=== PATIENT | female | born 1980 | race Caucasian/White ===

== ENCOUNTER 2016-06-21 05:07 | Inpatient (IN) ==
[2016-06-19 07:16] LABS: MANUAL DIFF NEEDED? NO; URINE SOURCE CLEAN CATCH
[2016-06-19 07:31] LABS: BASO% 0.6 % (0.0-0.8); EOS% 1.8 % (0.0-10.0); HEMATOCRIT 38.4 % (37.0-47.0); HEMOGLOBIN 12.8 g/dL (12.0-16.0); IMM GRAN# 0.02 X1000 (0.0-0.04); IMM GRAN% 0.2 % (0.0-0.5); LYMPH# 3.64 X1000 (1.2-3.4); LYMPH% 32.8 % (20.5-51.1); MCH 31.8 PG (27-31); MCHC 33.3 g/dL (33-37); MCV 95.5 FL (81-99); MONO# 0.76 X1000 (0.11-0.59); MONO% 6.9 % (1.7-9.3); MPV 10.6 FL (7.4-10.4); NEUT% 57.7 % (42.2-75.2); PLT 393 X1000 (130-400); RBC 4.02 XMIL (4.2-5.4)
[2016-06-19 07:52] LABS: BILIRUBIN URINE NEGATIVE (NEGATIVE); BLOOD URINE 1+ (NEGATIVE); GLUCOSE URINE NEGATIVE (NEGATIVE); LEUKOCYTES URINE 1+ (NEGATIVE); NITRITE URINE NEGATIVE (NEGATIVE); PROTEIN URINE NEGATIVE (NEGATIVE); SP GRAVITY URINE 1.025; UROBILINOGEN URINE NORMAL
[2016-06-19 07:53] LABS: CLARITY CLEAR (CLEAR); COLOR YELLOW; URINE MICROSCOPIC NEEDED? YES
[2016-06-19 08:06] LABS: URINE EPITHELIAL CELLS <10 /HPF (<10); URINE WBC <10 /HPF (<10)
--- NOTE | 2016-06-20 08:34 | HISTORY AND PHYSICAL ---
ADMITTING PHYSICIAN: Ger Yuan MD. ADMITTING DIAGNOSES: 1. Carcinoma in situ of the cervix. 2. Dysmenorrhea. SUMMARY: Grazyna Modi is a 36-year-old, 2, para 2, who has biopsy-proven severe dysplasia/carcinoma in situ of the cervix. She also has near disabling dysmenorrhea. After discussing the options with the patient, she is being admitted for a total abdominal hysterectomy. Risks of the procedure including pain, bleeding, infection, bowel or bladder injury, anesthesia complications have been discussed. Alternatives to the surgery have also been discussed. PAST MEDICAL HISTORY: This patient has had 2 sections. She has had a breast augmentation and abdominoplasty. Otherwise, there are no chronic medical or surgical illnesses. CURRENT MEDICATIONS: None. ALLERGIES: To sulfa, penicillin, and latex. PHYSICAL EXAMINATION: GENERAL: Shows a well-developed, well-nourished female. Weight is 167. VITAL SIGNS: Blood pressure is 118/74. CARDIOVASCULAR: Regular rate and rhythm without murmurs, rubs, or gallops. PULMONARY: Clear. BREASTS: No masses. ABDOMEN: Nontender. PELVIC: Examination shows normal external genitalia. Her cervix is grossly free of lesions. The uterus is not enlarged. There are no adnexal masses. IMPRESSIONS: 1. Carcinoma in situ of the cervix. 2. Dysmenorrhea. PLAN: We will proceed with abdominal hysterectomy. Risks, benefits, possible complications, reasonable expectations of surgery, along with alternative treatment methods available to her have been discussed in detail.
[2016-06-21] MEDS ORDERED: LR 1,000 ML ONE ×2 (05:10→06:22)
[2016-06-21] MEDS ORDERED: FENTANYL ONE (06:21)
[2016-06-21] MEDS ORDERED: DIPRIVAN 1% ONE (06:21)
[2016-06-21] MEDS ORDERED: VERSED ONE (06:21)
[2016-06-21] MEDS ORDERED: EPHEDRINE ONE (06:22)
[2016-06-21] MEDS ORDERED: PEPCID IV ONE (06:27)
[2016-06-21] MEDS ORDERED: REGLAN IV ONE (06:27)
[2016-06-21] MEDS ORDERED: SODIUM CHLORIDE 0.9% INJ ONE (06:27)
[2016-06-21] MEDS ORDERED: CLAVE SECONDARY SET 11953 ONE (06:53)
[2016-06-21] MEDS ORDERED: KEFZOL 1 GM/D5W 50 ML ONE (06:53)
[2016-06-21 07:38] LABS: URINE SOURCE CATH
[2016-06-21 07:51] LABS: BILIRUBIN URINE NEGATIVE (NEGATIVE); BLOOD URINE 1+ (NEGATIVE); CLARITY CLEAR (CLEAR); COLOR YELLOW; GLUCOSE URINE NEGATIVE (NEGATIVE); LEUKOCYTES URINE NEGATIVE (NEGATIVE); NITRITE URINE NEGATIVE (NEGATIVE); PROTEIN URINE NEGATIVE (NEGATIVE); URINE MICROSCOPIC NEEDED? YES; UROBILINOGEN URINE NORMAL
[2016-06-21 07:52] LABS: URINE EPITHELIAL CELLS <10 /HPF (<10); URINE RBC <10 /HPF (<10)
[2016-06-21] MEDS ORDERED: AMBIEN PO PRN (08:21)
[2016-06-21] MEDS ORDERED: DULCOLAX PR PRN (08:21)
[2016-06-21] MEDS ORDERED: MOTRIN PO PRN (08:21)
[2016-06-21] MEDS ORDERED: PHENERGAN IM PRN (08:21)
[2016-06-21] MEDS ORDERED: ZOFRAN ODT PO PRN (08:21)
[2016-06-21] MEDS ORDERED: FLEET ENEMA PR PRN (08:21)
[2016-06-21] MEDS ORDERED: LEVSIN-SL SL PRN (08:21)
[2016-06-21] MEDS ORDERED: ZOFRAN IV PRN ×2 (08:21→09:54)
[2016-06-21] MEDS ORDERED: DEMEROL IM PRN (08:21)
[2016-06-21] MEDS ORDERED: DEMEROL IV ONE ×2 (08:53→08:59)
[2016-06-21] MEDS ORDERED: OFIRMEV 1000 MG/ISOTONIC SOLN 100 ML ONE (09:11)
[2016-06-21] MEDS ORDERED: OFIRMEV 1000 MG/ISOTONIC SOLN MISC ONE (09:14)
[2016-06-21] MEDS ORDERED: DILAUDID ONE (09:19)
[2016-06-21] MEDS ORDERED: DILAUDID PCA VIAL ONE (09:34)
[2016-06-21] MEDS ORDERED: LR 1,000 ML IV SCH (09:54)
[2016-06-21] MEDS ORDERED: DILAUDID PCA VIAL IV PRN (09:54)
[2016-06-21] MEDS ORDERED: NARCAN IV PRN (09:54)
[2016-06-21] MEDS ORDERED: BENADRYL IV PRN (09:54)
[2016-06-21] MEDS: LR 1,000 ML IV SCH ×2 (09:55→16:26)
[2016-06-21] MEDS ORDERED: OFIRMEV 1000 MG/ISOTONIC SOLN 100 ML IV SCH (11:00)
--- NOTE | 2016-06-21 13:35 | OPERATIVE NOTE ---
PROCEDURE DATE: 06/21/2016 SURGEON: Ger Yuan MD. TREATMENT SPECIALIST: Ger Maradiaga MD. ANESTHESIA: General endotracheal. OPERATION PERFORMED: Total abdominal hysterectomy. PREOPERATIVE DIAGNOSES: 1. Carcinoma in situ of the cervix. 2. Dysmenorrhea. POSTOPERATIVE DIAGNOSES: 1. Carcinoma in situ of the cervix. 2. Dysmenorrhea. FINDINGS: Normal anatomy. PROCEDURE: The patient was taken back to operating room and after general endotracheal anesthesia, was placed in the supine position. The vagina, abdomen and perineum were prepped and draped in usual fashion. A Aiken catheter was placed in the urinary bladder. A repeat Pfannenstiel incision was made. This incision was taken down to the fascia. The fascia was excised transversely. The underlying rectus muscles were bluntly and sharply dissected free. The rectus muscle was in midline and peritoneum was entered. The O'Harjinder-O'Whitfield retractor was placed and bowel was packed out of the operative field. The fundus of the uterus was grasped with a Jason clamp and elevated out of the pelvis. Beginning on the patient's right side, the LigaSure device was used to grasp, cauterize and excise 1st the round ligament and then the broad ligament. The same procedure was then repeated on the patient's left side using the LigaSure device. The bladder was then bluntly and sharply dissected off the lower uterine segment and cervix. The uterine vessels were then clamped, cauterized, and excised using the LigaSure device. We then used straight Oscar clamps to clamp, incise, and ligate first the cardinal then uterosacral ligaments. The vaginal vault was entered. The cervix was dissected off the upper vaginal vault. Angle stitches were placed bilaterally. The cuff was closed using a running Vicryl suture. Several [id number] Vicryl sutures then used to achieve complete hemostasis across the suture line. The pelvic cavity was irrigated with copious amounts of sterile water. At this point, hemostasis again was noted and anesthesia estimated her blood loss at 220 mL. Surgifoam was placed at the cuff. All packs and instruments were removed. Initial sponge, instrument, and needle count report was correct. The peritoneum was closed using running chromic sutures. Second sponge, instrument, and needle count was correct. The fascia was closed using running Vicryl sutures x2. The adipose tissue was reapproximated using a running 3-0 Vicryl suture. The skin edges were reapproximated using running 3-0 Monocryl suture with the last sponge, instrument and needle count being reported as correct. The patient was extubated and went to the recovery room in stable condition.
[2016-06-21] MEDS: MYLICON PO SCH ×2 (14:54→21:08)
[2016-06-21] MEDS: PERIDEX MT SCH ×2 (14:54→21:08)
[2016-06-21] MEDS: TORADOL IV SCH ×2 (14:56→21:08)
[2016-06-21 15:18] LABS: HEMATOCRIT 39.2 % (37.0-47.0)
[2016-06-21] MEDS: COLACE PO SCH (21:08)
[2016-06-22] MEDS: TORADOL IV SCH ×2 (02:21→09:02)
[2016-06-22] MEDS: LR 1,000 ML IV SCH (06:22)
[2016-06-22 06:56] LABS: HEMOGLOBIN 11.3 g/dL (12.0-16.0); MCH 32.9 PG (27-31); MCHC 33.2 g/dL (33-37); MCV 99.1 FL (81-99); MPV 11.1 FL (7.4-10.4); RBC 3.43 XMIL (4.2-5.4)
[2016-06-22] MEDS: MYLICON PO SCH ×4 (08:56→20:20)
[2016-06-22] MEDS: COLACE PO SCH ×2 (08:56→20:20)
[2016-06-22] MEDS: PERIDEX MT SCH ×2 (08:57→20:20)
[2016-06-22] MEDS ORDERED: D/C PCA XX ONE (12:00)
[2016-06-22] MEDS ORDERED: HYDROXYZINE PO PRN (12:41)
[2016-06-22] MEDS: NORCO-5 PO PRN (17:12)
[2016-06-23] MEDS: NORCO-5 PO PRN (02:48)
--- NOTE | 2016-06-23 07:33 | DISCHARGE SUMMARY ---
ADMISSION DATE: 06/21/2016 DISCHARGE DATE: 06/23/2016 ADMITTING DIAGNOSES: 1. Carcinoma in situ of the cervix. 2. Dysmenorrhea. PRINCIPAL DIAGNOSES: 1. Carcinoma in situ of the cervix. 2. Dysmenorrhea. PRINCIPAL PROCEDURE: Total abdominal hysterectomy. SUMMARY: Grazyna Modi is a 36-year-old, 2, para 2, with biopsy-proven severe dysplasia/carcinoma in situ of her cervix. She is also having dysmenorrhea. After discussing options with the patient, she was admitted to the hospital and underwent a total abdominal hysterectomy. There were no intraoperative complications. Final pathology report showed mild dysplasia with no evidence of severe dysplasia or carcinoma in situ. There were no other abnormalities noted. Postoperatively, the patient has remained afebrile and all of her vital signs were stable. She had an admission hemoglobin and hematocrit of 13/39.2 with discharge hemoglobin and hematocrit being 11.3/34. On the day of discharge, cardiac and pulmonary examinations normal. Bowel and bladder function was normal. Incision was clean and dry. She was having scant vaginal bleeding. Ms. Modi will be discharged today and we will see her back in the office in 1 week. Routine discharge instructions, activity limitations, and precautions were discussed. She is sent home with prescriptions for [place] 10 #30 and Motrin for postoperative pain.
[2016-06-23] MEDS: MYLICON PO SCH (07:52)
[2016-06-23] MEDS: COLACE PO SCH (07:52)
[2016-06-23 07:58] VITALS: BP 119/70
== END 2016-06-23 09:15 | disposition home or self-care (01) | DRG 743 ==
LOC: P.WC 05:07
PROVIDERS: ADMIT Obstetrics & Gynecology; ATTEND Obstetrics & Gynecology
PROC: 0UTC0ZZ Resection of Cervix, Open Approach (ICD-10-PCS; 2016-06-21)
PROC: 0UT90ZZ Resection of Uterus, Open Approach (ICD-10-PCS; principal; 2016-06-21 06:56)
DX: N94.6 Dysmenorrhea, unspecified (principal); I34.1 Nonrheumatic mitral (valve) prolapse; N87.0 Mild cervical dysplasia; M79.7 Fibromyalgia
CPT/HCPCS: 36415; 81001; 84703; 85014; 85018; 85025; 85027; 86850; 86900; 86901; 94799; J0131; J0690; J1170; J1885; J2175; J2250; J2405; J2765; J3010; J7120; S0028